=== PATIENT | female | born 1985 | race Caucasian/White ===

== ENCOUNTER 2016-02-23 23:28 | Emergency (ER) | payer OTHER ==
[~2016-02-23] VITALS: Ht 154.9 cm; Wt 69.2 kg
[~2016-02-23 23:28] MED LIST: CMBIN INH; POLY335025 PO
[2016-02-23 23:42] VITALS: TEMP 36.6; Ht 154.9 cm; Wt 69.2 kg
[2016-02-24 00:30] LABS: BASO % 0.3 %; BASO ABS # 0.03 K/uL (0-0.2); COMPLETE YES; EOS % 2.1 %; HEMATOCRIT 40.8 % (37-47); IG% 0.2 %; LYMPH % 29.1 %; MEAN CELL VOLUME 93.4 fL (80-100); MEAN CORPUSCULAR HEMOGLOBIN 32.7 pg (25-34); MEAN PLATELET VOLUME 10.2 fL (7.4-10.4); MONO % 9.8 %; NEUT % 58.5 %; PLATELET COUNT 220 K/uL (130-400); RED BLOOD COUNT 4.37 M/uL (4.2-5.4); WHITE BLOOD COUNT 10.31 K/uL (4.8-10.8)
[2016-02-24] MEDS ORDERED: HYDR25CA PO (00:44)
[2016-02-24] MEDS ORDERED: RTL20 PO (00:45)
[2016-02-24] MEDS ORDERED: VNTHFA/IN INH (00:46)
[2016-02-24] MEDS ORDERED: MULT-506 PO (00:46)
[2016-02-24] MEDS ORDERED: VITACAP26 PO (00:47)
[2016-02-24 00:51] LABS: PREG INTERNAL NEGATIVE QC NEG CLEAR BACKGROUND; PREG INTERNAL POSITIVE QC POS CONTROL LINE
[2016-02-24 00:57] LABS: ALT/SGPT 24 U/L (12-78); AST/SGOT 8 U/L (15-37); BLOOD UREA NITROGEN 12 mg/dl (7-18); BUN/CREATININE RATIO 15.3 (10-20); CALCIUM 9.5 mg/dl (8.5-10.1); CARBON DIOXIDE 27 mmol/L (21-32); CHLORIDE 105 mmol/L (98-107); GLUCOSE 94 mg/dl (70-99); POTASSIUM 4.4 mmol/L (3.5-5.1); SODIUM 143 mmol/L (136-145)
[2016-02-24 01:00] LABS: ALKALINE PHOSPHATASE 67 U/L (45-117)
[2016-02-24 01:20] VITALS: BP 99/60; PULSE 94; O2SAT 94
--- NOTE | 2016-02-24 01:21 | EMERGENCY ROOM VISIT NOTE ---
History Report prepared by Nell: Bhaskar Bassett Under the Supervision of: Dr. Jayy Jeff M.D. First contact with patient: 23:48 Chief Complaint: CHEST PAIN Stated Complaint: CHEST PAIN, SOB History of Present Illness The patient is a 30 year old female who presents to the Emergency Room with complaints of improving chest pain beginning 2 hours ago. She describes the pain as "sharp". She states that she was sitting and watching TV when her symptoms began. The patient notes that she has a history of anxiety, and currently feels very anxious. She states that she often gets heart palpitations with her anxiety, but has never had pain before. She also has a history of asthma. The patient denies any shortness of breath, but states that breathing worsens her pain. She denies any nausea, vomiting, diarrhea, fevers, or abdominal pain. She took Vistaril for her anxiety which has improved her chest pain. 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 She also notes that she was moving a lot of laundry today, and may have strained her chest muscle. Source of History: patient Onset: 2 hours ago Position: chest Quality: sharp Timing: other (improving) Modifying Factors (Worsening): breathing Associated Symptoms: No SOB, No abdominal pain, No diarrhea, No fevers, No nausea, No vomiting Review of Systems See HPI for pertinent positives & negatives. A total of 10 systems reviewed and were otherwise negative. Past Medical & Surgical Medical Problems: (1) ALCOHOL ABUSE-UNSPEC (2) ASTHMA, UNSPECIFIED (3) Depression (4) HISTORY OF TOBACCO USE (5) LUMBOSACRAL NEURITIS NOS Old medical records were reviewed. Nurse's notes were reviewed and I agree with. Family History No pertinent family history stated. Social History Smoking Status: Current Every Day Smoker Alcohol Use: occasionally Drug Use: none Marital Status: single Occupation Status: unemployed Current/Historical Medications Scheduled Hydroxyzine Pamoate (Vistaril), 25 MG PO BID Methylphenidate (Ritalin), 20 MG PO QAM Multivitamin (Multivitamin), 1 TAB PO DAILY Vitamins C & E (Vitamin C), 1 CAP PO DAILY Scheduled PRN Albuterol Hfa (Ventolin Hfa), 2 PUFFS INH DIRECTED PRN for Shortness of Breath Allergies Coded Allergies: Bupropion (Verified Allergy, Mild, HIVES; SWELLING, 02/24/16) Moxifloxacin (Verified Allergy, Mild, HIVES;SWELLING, 02/24/16) Quinolones (Verified Allergy, Mild, HIVES, 02/24/16) Morphine (Verified Adverse Reaction, Unknown, NAUSEA AND VOMITING, 02/24/16) Physical Exam Vital Signs Date Time Temp Pulse Resp B/P Pulse Ox O2 Delivery O2 Flow Rate FiO2 02/24/16 01:20 94 16 99/60 94 02/24/16 00:10 96 Room Air 02/23/16 23:42 36.6 94 18 117/71 97 Room Air Physical Exam General: Well developed, well nourished, non-ill appearing young female in no acute distress, breathing comfortably on room air. Normal speech HEENT: Normal cephalic atraumatic. Pupils are equal round and reactive to light. Extraocular movements are intact. Oropharynx is pink with moist mucous membranes. No swelling of the mouth lips or tongue. Neck: Supple with a midline trachea. No meningeal signs or stiffness, no JVD or bruits. No Stridor. Chest: Clear to auscultation bilaterally. No wheezes or rhonchi. No increased work of breathing. Mild tenderness to palpation of the left anterior chest. Heart: regular rate and rhythm. Abdomen: Soft, nontender, nondistended without rebound guarding or rigidity. Extremities: No cyanosis clubbing or edema. No calf tenderness or assymetry Spine/Back. Non tender to palpation. No CVA tenderness Skin: Good turgor without rashes. Neurologic exam: Cranial nerves two through 12 are intact. Motor and sensation are intact and symmetrical throughout. Medical Decision & Procedures ER Provider Diagnostic Interpretation: One View Chest X-ray interpreted by me: No acute infiltrate, failure or pneumothorax. Laboratory Results 02/24/16 00:15 Red Blood Count 4.37, Mean Corpuscular Volume 93.4, Mean Corpuscular Hemoglobin 32.7, Mean Corpuscular Hemoglobin Concent 35.0, Mean Platelet Volume 10.2, Neutrophils (%) (Auto) 58.5, Lymphocytes (%) (Auto) 29.1, Monocytes (%) (Auto) 9.8, Eosinophils (%) (Auto) 2.1, Basophils (%) (Auto) 0.3, Neutrophils # (Auto) 6.03, Lymphocytes # (Auto) 3.00, Monocytes # (Auto) 1.01, Eosinophils # (Auto) 0.22, Basophils # (Auto) 0.03 02/24/16 00:15 Test 02/24/16 00:15 02/24/16 00:22 White Blood Count 10.31 K/uL (4.8-10.8) Red Blood Count 4.37 M/uL (4.2-5.4) Hemoglobin 14.3 g/dL (12.0-16.0) Hematocrit 40.8 % (37-47) Mean Corpuscular Volume 93.4 fL (80-100) Mean Corpuscular Hemoglobin 32.7 pg (25-34) Mean Corpuscular Hemoglobin Concent 35.0 g/dl (32-36) Platelet Count 220 K/uL (130-400) Mean Platelet Volume 10.2 fL (7.4-10.4) Neutrophils (%) (Auto) 58.5 % Lymphocytes (%) (Auto) 29.1 % Monocytes (%) (Auto) 9.8 % Eosinophils (%) (Auto) 2.1 % Basophils (%) (Auto) 0.3 % Neutrophils # (Auto) 6.03 K/uL (1.4-6.5) Lymphocytes # (Auto) 3.00 K/uL (1.2-3.4) Monocytes # (Auto) 1.01 K/uL (0.11-0.59) Eosinophils # (Auto) 0.22 K/uL (0-0.5) Basophils # (Auto) 0.03 K/uL (0-0.2) RDW Standard Deviation 46.6 fL (36.4-46.3) RDW Coefficient of Variation 13.6 % (11.5-14.5) Immature Granulocyte % (Auto) 0.2 % Immature Granulocyte # (Auto) 0.02 K/uL (0.00-0.02) Anion Gap 11.0 mmol/L (3-11) Est Creatinine Clear Calc Drug Dose 90.6 ml/min Estimated GFR () 113.9 Estimated GFR (Non- 98.2 BUN/Creatinine Ratio 15.3 (10-20) Calcium Level 9.5 mg/dl (8.5-10.1) Total Bilirubin 0.1 mg/dl (0.2-1) Direct Bilirubin < 0.1 mg/dl (0-0.2) Aspartate Amino Transf (AST/SGOT) 8 U/L (15-37) Alanine Aminotransferase (ALT/SGPT) 24 U/L (12-78) Alkaline Phosphatase 67 U/L (45-117) Total Protein 7.4 gm/dl (6.4-8.2) Albumin 4.0 gm/dl (3.4-5.0) Lipase 85 U/L (73-393) Human Chorionic Gonadotropin, Qual NEG (NEG) Bedside D-Dimer 409 ng/mlFEU (0-450) Bedside Troponin I 0.000 ng/ml (0-0.045) Laboratory studies as stated above per my review. ECG Indication: chest pain Rate (beats per minute): 103 Rhythm: sinus tachycardia Findings: no acute ischemic change Comparison ECG Date: December 14, 2015 Change: no significant change ED Course 2354: Past medical records reviewed. The patient was evaluated in room C9, and a complete history and physical examination were performed. 0055: I checked in on the patient. She feels better. 0120: Upon reevaluation, the patient is resting comfortably. I discussed the results and treatment plan with her. She verbalized agreement of the treatment plan. The patient was discharged home. Medical Decision Differentials include, but are not limited to; anxiety, costochondritis, PE, pneumothorax, pneumonia, and electrolyte or metabolic abnormality. This patient comes in as described above. She was placed on a awake overnight monitor in room C9. She is here for treatment and evaluation of chest pain. she does have a history of anxiety. she also has been lifting and is concerned she could' ve pulled something. she looks well on exam .she took Vistaril at home and feels a lot better. She did declines any further pain medication. EKG does not suggest acute coronary syndrome or arrhythmia. Chest x-ray was unremarkable and she has nothing to suggest congestive heart failure, pneumonia, or pneumothorax. She has no acute electrolyte or metabolic abnormalities. Her d- dimer was within normal limits and in a low pretest probability setting, makes PE highly unlikely. She feels good and would like to go home. I think most likely this was musculoskeletal or anxiety or combination thereof. I told her that she can use anti-inflammatories if needed for pain and use her Vistaril if needed for anxiety. return if: Worsening of symptoms, fever or chills, shortness of breath, any new problems concerns. She is happy with the plan and discharged to home. Impression Primary Impression: Left sided chest pain Additional Impression: Anxiety Scribe Attestation The scribe's documentation has been prepared under my direction and personally reviewed by me in its entirety. I confirm that the note above accurately reflects all work, treatment, procedures, and medical decision making performed by me. Departure Information Dispostion Home / Self-Care Referrals No Doctor, Assigned (PCP) Forms HOME CARE DOCUMENTATION FORM, IMPORTANT VISIT INFORMATION Patient Instructions A Signature Page, [facility] Additional Instructions Rest. Drink plenty of fluids. Return if: Worsening of symptoms, increasing pain, shortness of breath, fever or chills, any new problems or concerns Follow-up with your doctor in 1-2 days for recheck
--- NOTE | 2016-02-24 06:40 | DIAGNOSTIC IMAGING REPORT ---
CHEST ONE VIEW PORTABLE CLINICAL HISTORY: Chest pain. COMPARISON STUDY: Chest radiograph November 06, 2012. FINDINGS: Lung volumes are at the lower limits of normal. There is no pneumothorax or pleural effusion. Cardiac size is normal. Mediastinal contours are normal. There is no evidence of pulmonary edema. IMPRESSION: No acute cardiopulmonary findings. Electronically signed by: Booker Mcnally M.D. 02/24/2016 6:38 AM
== END 2016-02-24 01:20 | disposition home or self-care (01) ==
LOC: C.EDB 23:29 → C.EDC 02-24 01:20
DX: R07.9 Chest pain, unspecified (principal); F17.210 Nicotine dependence, cigarettes, uncomplicated; F32.9 Major depressive disorder, single episode, unspecified; F41.9 Anxiety disorder, unspecified; J45.909 Unspecified asthma, uncomplicated

== ENCOUNTER 2016-02-27 12:09 | Emergency (ER) | payer OTHER ==
[~2016-02-27] VITALS: Ht 154.9 cm; Wt 69.9 kg
[~2016-02-27 12:09] MED LIST changes: -CMBIN INH; +HYDR25CA PO; +MULT-506 PO; -POLY335025 PO; +RTL20 PO; +VITACAP26 PO; +VNTHFA/IN INH
[2016-02-27 12:11] VITALS: Ht 154.9 cm; Wt 69.9 kg
[2016-02-27] MEDS ORDERED: SODIUM CHLORIDE 0.9% 1000ML 1,000 ML IV ONE (12:33)
[2016-02-27] MEDS ORDERED: SODIUM CHLORIDE 0.9% 1000ML 1,000 ML IV STA ×2 (12:33→13:58)
--- NOTE | 2016-02-27 12:42 | EMERGENCY ROOM VISIT NOTE ---
History Report prepared by Nell: Ernesto Melton Under the Supervision of: Dr. Jayy Jeff M.D. First contact with patient: 12:28 Chief Complaint: DEHYDRATION Stated Complaint: DEHYDRATION History of Present Illness The patient is a 30 year old female who presents to the Emergency Room with complaints of a persistent weakness that started upon waking this morning. The patient says she feels completely drained. She cannot even produce spit in her mouth. The patient says that whenever she eats or drinks anything, her stomach bloats. She also noticed red spots on her left forearm. The patient denies any fevers, vomiting, diarrhea, abdominal pain, coughing, diarrhea, achiness, urinary symptoms, melena, hematochezia, or chance of . The patient says nobody is sick at her home. She feels like she did when she had mononucleosis. She has anxiety disorder, and is currently doing okay, and she denies any suicidal ideations. She did not get her flu shot. The patient had her thyroid checked 3 months ago and it was normal. Source of History: patient Onset: Upon waking this morning Position: other (global - weakness) Symptom Intensity: feels completely drained Timing: other (persistent) Associated Symptoms: + rash (red spots on left forearm), No abdominal pain, No cough, No diarrhea, No fevers, No hematochezia, No melena, No urinary symptoms, No vomiting Note: Associated symptoms: Cannot produce spit in mouth, whenever eats or drinks, patient's stomach bloats. Denies achiness. Review of Systems See HPI for pertinent positives & negatives. A total of 10 systems reviewed and were otherwise negative. Past Medical & Surgical Medical Problems: (1) ALCOHOL ABUSE-UNSPEC (2) ASTHMA, UNSPECIFIED (3) Depression (4) HISTORY OF TOBACCO USE (5) LUMBOSACRAL NEURITIS NOS Old medical records were reviewed. Nurse's notes were reviewed and I agree with. Family History No pertinent family history Social History Smoking Status: Current Every Day Smoker Alcohol Use: occasionally Drug Use: none Marital Status: single Occupation Status: unemployed Current/Historical Medications Scheduled Hydroxyzine Pamoate (Vistaril), 25 MG PO BID Methylphenidate (Ritalin), 20 MG PO QAM Multivitamin (Multivitamin), 1 TAB PO DAILY Vitamins C & E (Vitamin C), 1 CAP PO DAILY Scheduled PRN Albuterol Hfa (Ventolin Hfa), 2 PUFFS INH DIRECTED PRN for Shortness of Breath Allergies Coded Allergies: Bupropion (Verified Allergy, Mild, HIVES; SWELLING, 02/24/16) Moxifloxacin (Verified Allergy, Mild, HIVES;SWELLING, 02/24/16) Quinolones (Verified Allergy, Mild, HIVES, 02/24/16) Morphine (Verified Adverse Reaction, Unknown, NAUSEA AND VOMITING, 02/24/16) Physical Exam Vital Signs Date Time Temp Pulse Resp B/P Pulse Ox O2 Delivery O2 Flow Rate FiO2 02/27/16 14:56 85 18 121/74 99 Room Air 02/27/16 14:56 36.8 96 18 137/84 99 02/27/16 12:11 36.8 96 18 137/84 99 Room Air Nasal Cannula Physical Exam General: Well developed well nourished, non ill-appearing young female in no acute distress, breathing comfortably on room air. Normal speech HEENT: Normal cephalic atraumatic. Pupils are equal round and reactive to light. Extraocular movements are intact. Oropharynx is pink with moist mucous membranes. No swelling of the mouth lips or tongue. Neck: Supple with a midline trachea. No meningeal signs or stiffness, no JVD or bruits. No Stridor. Chest: Clear to auscultation bilaterally. No wheezes or rhonchi. No increased work of breathing. Heart: regular rate and rhythm. Abdomen: Soft nontender, nondistended without rebound guarding or rigidity. Extremities: No cyanosis clubbing or edema. No calf tenderness or assymetry Spine/Back. Non tender to palpation. No CVA tenderness Skin: Good turgor without rashes. Neurologic exam: Cranial nerves two through 12 are intact. Motor and sensation are intact and symmetrical throughout. Medical Decision & Procedures Laboratory Results 02/27/16 12:52 Red Blood Count 4.16, Mean Corpuscular Volume 92.5, Mean Corpuscular Hemoglobin 32.7, Mean Corpuscular Hemoglobin Concent 35.3, Mean Platelet Volume 9.9, Neutrophils (%) (Auto) 72.0, Lymphocytes (%) (Auto) 17.7, Monocytes (%) (Auto) 8.2, Eosinophils (%) (Auto) 1.6, Basophils (%) (Auto) 0.2, Neutrophils # (Auto) 7.75, Lymphocytes # (Auto) 1.90, Monocytes # (Auto) 0.88, Eosinophils # (Auto) 0.17, Basophils # (Auto) 0.02 02/27/16 12:52 Test 02/27/16 12:42 02/27/16 12:52 Urine Color YELLOW Urine Appearance CLEAR (CLEAR) Urine pH 5.5 (4.5-7.5) Urine Specific [place] 1.000 (1.000-1.030) Urine Protein NEG (NEG) Urine Glucose (UA) NEG (NEG) Urine Ketones NEG (NEG) Urine Occult Blood NEG (NEG) Urine Nitrite NEG (NEG) Urine Bilirubin NEG (NEG) Urine Urobilinogen NEG (NEG) Urine Leukocyte Esterase NEG (NEG) Urine Test NEG (NEG) White Blood Count 10.75 K/uL (4.8-10.8) Red Blood Count 4.16 M/uL (4.2-5.4) Hemoglobin 13.6 g/dL (12.0-16.0) Hematocrit 38.5 % (37-47) Mean Corpuscular Volume 92.5 fL (80-100) Mean Corpuscular Hemoglobin 32.7 pg (25-34) Mean Corpuscular Hemoglobin Concent 35.3 g/dl (32-36) Platelet Count 212 K/uL (130-400) Mean Platelet Volume 9.9 fL (7.4-10.4) Neutrophils (%) (Auto) 72.0 % Lymphocytes (%) (Auto) 17.7 % Monocytes (%) (Auto) 8.2 % Eosinophils (%) (Auto) 1.6 % Basophils (%) (Auto) 0.2 % Neutrophils # (Auto) 7.75 K/uL (1.4-6.5) Lymphocytes # (Auto) 1.90 K/uL (1.2-3.4) Monocytes # (Auto) 0.88 K/uL (0.11-0.59) Eosinophils # (Auto) 0.17 K/uL (0-0.5) Basophils # (Auto) 0.02 K/uL (0-0.2) RDW Standard Deviation 44.4 fL (36.4-46.3) RDW Coefficient of Variation 13.1 % (11.5-14.5) Immature Granulocyte % (Auto) 0.3 % Immature Granulocyte # (Auto) 0.03 K/uL (0.00-0.02) Anion Gap 10.0 mmol/L (3-11) Est Creatinine Clear Calc Drug Dose 87.8 ml/min Estimated GFR () 108.9 Estimated GFR (Non- 94.0 BUN/Creatinine Ratio 11.4 (10-20) Calcium Level 8.8 mg/dl (8.5-10.1) Total Bilirubin 0.4 mg/dl (0.2-1) Direct Bilirubin < 0.1 mg/dl (0-0.2) Aspartate Amino Transf (AST/SGOT) 10 U/L (15-37) Alanine Aminotransferase (ALT/SGPT) 15 U/L (12-78) Alkaline Phosphatase 63 U/L (45-117) Total Protein 7.1 gm/dl (6.4-8.2) Albumin 3.9 gm/dl (3.4-5.0) Lipase 62 U/L (73-393) Thyroid Stimulating Hormone (TSH) 0.427 uIu/ml (0.300-4.500) Laboratory studies as stated above per my review. Medications Administered Medications (Trade) Dose Ordered Sig/Juarez Route Start Time Stop Time Status Last Admin Dose Admin Sodium Chloride 1,000 ml @ 999 mls/hr Q1H1M STAT IV 02/27/16 12:33 02/27/16 13:33 DC 02/27/16 13:08 999 MLS/HR Sodium Chloride (Nss 1000ml) 1,000 ml @ 999 mls/hr Q1H1M STAT IV 02/27/16 13:58 02/27/16 14:58 DC 02/27/16 14:03 999 MLS/HR ECG Indication: weakness Rate (beats per minute): 74 Rhythm: normal sinus Findings: no acute ischemic change, no ectopy Comparison ECG Date: compared to 02/21/2016, rate has decreased, otherwise no change ED Course 1229: Past medical records reviewed. The patient was evaluated in room A10, and a complete history and physical examination were performed. 1233: Ordered NSS 1000 ml @ 200 mls/hr IV, NSS 1000 ml @ 999 mls/hr IV. 1356: I reevaluated the patient and she is starting to feel better. 1419: I reevaluated the patient and she is resting comfortably. The patient verbally expressed agreement and understanding of the treatment plan. The patient will be discharged. Medical Decision Differential diagnoses include: dehydration, viral illness, electrolyte or metabolic abnormality, arrhythmia, anemia, thyroid disease. This patient comes in as described above she feels weak diffusely and tired. She was placed in room A 10. She otherwise has no significant symptoms. She's had no flulike symptoms. No achiness or fever chills or headache. No cough. I did see her several days ago for chest pain that has resolved and her workup was unremarkable at that time. She has no urinary symptoms. She's not losing blood anywhere. She's had no blood or black colored stool .she has no vaginal bleeding and denies . IV access was established and she was hydrated 1 L IV normal saline bolus and 200 mL an hour of IV normal saline. Multiple blood testing was obtained as well as EKG. She was reassessed frequently. A urinalysis was also ordered. He has nothing to suggest a UTI. Her TSH is within normal limits. She did receive a second 1 liter IV normal saline was feeling better. It may be that she has an early viral illness. She has a normal neurologic exam. She looks and feels good and like to go home I will discharge her home. She will return if: Worsening of symptoms, any new prompts or concerns. She is to rest and drink plenty of fluids. Follow up with her doctor Monday for recheck. Impression Primary Impression: Weakness Scribe Attestation The scribe's documentation has been prepared under my direction and personally reviewed by me in its entirety. I confirm that the note above accurately reflects all work, treatment, procedures, and medical decision making performed by me. Departure Information Dispostion Home / Self-Care Referrals No Doctor, Assigned (PCP) Kaylen Rush M.D. Forms HOME CARE DOCUMENTATION FORM, IMPORTANT VISIT INFORMATION, WORK / SCHOOL INSTRUCTIONS Patient Instructions A Signature Page, [facility] Additional Instructions Rest. Drink plenty of fluids. Return if: Fever or chills, worsening symptoms, any new problems or concerns Follow up with her doctor Monday for recheck if not better. Return to ER over the weekend if symptoms worsen.
[2016-02-27 13:08] LABS: URINE APPEARANCE CLEAR (CLEAR); URINE BILIRUBIN NEG (NEG); URINE COLOR YELLOW; URINE NITRITE NEG (NEG); URINE PH 5.5 (4.5-7.5); UROBILINOGEN NEG (NEG)
[2016-02-27 13:08] LABS: BASO % 0.2 %; BASO ABS # 0.02 K/uL (0-0.2); COMPLETE YES; EOS % 1.6 %; HEMATOCRIT 38.5 % (37-47); IG% 0.3 %; LYMPH % 17.7 %; MEAN CELL VOLUME 92.5 fL (80-100); MEAN CORPUSCULAR HEMOGLOBIN 32.7 pg (25-34); MEAN CORPUSCULAR HGB CONC 35.3 g/dl (32-36); MEAN PLATELET VOLUME 9.9 fL (7.4-10.4); MONO % 8.2 %; PLATELET COUNT 212 K/uL (130-400); RED BLOOD COUNT 4.16 M/uL (4.2-5.4); WHITE BLOOD COUNT 10.75 K/uL (4.8-10.8)
[2016-02-27 13:13] LABS: MANUAL MICROSCOPIC REQUIRED? NO; REVIEW REQ? NO
[2016-02-27 13:28] LABS: ALT/SGPT 15 U/L (12-78); BLOOD UREA NITROGEN 10 mg/dl (7-18); BUN/CREATININE RATIO 11.4 (10-20); CALCIUM 8.8 mg/dl (8.5-10.1); CARBON DIOXIDE 25 mmol/L (21-32); CHLORIDE 104 mmol/L (98-107); CREATININE 0.83 mg/dl (0.60-1.20); GLUCOSE 91 mg/dl (70-99); POTASSIUM 3.3 mmol/L (3.5-5.1); SODIUM 139 mmol/L (136-145)
[2016-02-27 13:31] LABS: ALKALINE PHOSPHATASE 63 U/L (45-117); AST/SGOT 10 U/L (15-37)
[2016-02-27 14:50] LABS: THYROID STIMULATING HORMONE 0.427 uIu/ml (0.300-4.500)
[2016-02-27 14:56] VITALS: BP 121/74; PULSE 85; TEMP 36.8; O2SAT 99
== END 2016-02-27 14:57 | disposition home or self-care (01) ==
LOC: C.EDB 12:10 → C.EDA 14:57
DX: E86.0 Dehydration (principal); F41.9 Anxiety disorder, unspecified; R53.1 Weakness; F17.210 Nicotine dependence, cigarettes, uncomplicated

== ENCOUNTER 2017-09-20 22:32 | Emergency (ER) | payer OTHER ==
[~2017-09-20] VITALS: Ht 154.9 cm; Wt 67.3 kg
[2017-09-20 22:37] VITALS: TEMP 36.7; Ht 154.9 cm; Wt 67.3 kg
[2017-09-20 23:19] LABS: BASO % 0.3 %; BASO ABS # 0.02 K/uL (0-0.2); EOS ABS # 0.24 K/uL (0-0.5); HEMATOCRIT 38.5 % (37-47); HEMOGLOBIN 13.2 g/dL (12.0-16.0); IG# 0.02 K/uL (0.00-0.02); LYMPH ABS # 2.87 K/uL (1.2-3.4); MEAN CELL VOLUME 96.3 fL (80-100); MEAN CORPUSCULAR HGB CONC 34.3 g/dl (32-36); MEAN PLATELET VOLUME 9.6 fL (7.4-10.4); MONO % 7.5 %; NEUT % 52.9 %; NEUT ABS # 4.22 K/uL (1.4-6.5); PLATELET COUNT 244 K/uL (130-400); RED CELL DISTRIBUTION WIDTH CV 12.9 % (11.5-14.5); WHITE BLOOD COUNT 7.97 K/uL (4.8-10.8)
[2017-09-20] MEDS ORDERED: AMPH10TA2 PO (23:26)
[2017-09-20 23:43] LABS: ALBUMIN 3.9 gm/dl (3.4-5.0); ALKALINE PHOSPHATASE 72 U/L (45-117); ALT/SGPT 19 U/L (12-78); AST/SGOT 8 U/L (15-37); BLOOD UREA NITROGEN 12 mg/dl (7-18); CALCIUM 8.4 mg/dl (8.5-10.1); CARBON DIOXIDE 27 mmol/L (21-32); CREATININE 0.83 mg/dl (0.60-1.20); GLUCOSE 96 mg/dl (70-99); LIPASE 66 U/L (73-393); POTASSIUM 3.9 mmol/L (3.5-5.1); SODIUM 140 mmol/L (136-145); TOTAL PROTEIN 7.3 gm/dl (6.4-8.2)
[2017-09-21 00:10] VITALS: BP 114/74; PULSE 82; O2SAT 97
--- NOTE | 2017-09-21 01:54 | EMERGENCY ROOM VISIT NOTE ---
History Report prepared by Nell: Ritu Nina Under the Supervision of: Dr. Urbano Velasquez M.D. First contact with patient: 22:51 Chief Complaint: FLANK PAIN Stated Complaint: PAIN LEFT SIDE History of Present Illness The patient is a 32 year old female who presents to the Emergency Room with complaints of constant mild left flank pain that started at 1700 today. The patient currently rates her pain a 5/10 and she states her pain is deep under her ribcage. The patient reports she had a D&C a week ago and has since felt normal cramping and minimal bleeding. The patient states she has not taken medication for her pain and does not recall any trauma to the area or engaging in strenuous activity. The patient reports a history of mononucleosis 10 years ago and notes that she has had a urinary tract infection in the past. She denies any history of kidney stones. Pt denies LOC, headache, fevers, chills, diaphoresis, visual changes, neck pain, breathing difficulties, nausea, vomiting , back pain, melena, hematochezia, urinary symptoms, numbness, weakness, lymphadenopathy, rash, or other complaints. Source of History: patient Onset: 1700 today Position: abdomen (left flank) Symptom Intensity: mild Quality: other (pain) Timing: constant Associated Symptoms: No nausea Note: additional symptoms: cramping, minimal bleeding Review of Systems See HPI for pertinent positives and negatives. A total of ten systems were reviewed and were otherwise negative. Past Medical & Surgical Medical Problems: (1) ALCOHOL ABUSE-UNSPEC (2) ASTHMA, UNSPECIFIED (3) Depression (4) HISTORY OF TOBACCO USE (5) LUMBOSACRAL NEURITIS NOS (6) Mononucleosis (7) Urinary tract infection Surgical Problems: (1) S/P dilation and curettage Family History No pertinent family history Social History Smoking Status: Current Every Day Smoker Alcohol Use: occasionally Drug Use: none Marital Status: single Occupation Status: unemployed Current/Historical Medications Scheduled Amphetamine-Dextroamphetamine 10MG (Adderall 10MG), 15 MG PO QAM Multivitamin (Multivitamin), 1 TAB PO DAILY Vitamins C & E (Vitamin C), 1 CAP PO DAILY Scheduled PRN Albuterol Hfa (Ventolin Hfa), 2 PUFFS INH DIRECTED PRN for Shortness of Breath Hydroxyzine Pamoate (Vistaril), 25 MG PO BID PRN for PRN Allergies Coded Allergies: Bupropion (Verified Allergy, Mild, HIVES; SWELLING, 09/20/17) Moxifloxacin (Verified Allergy, Mild, HIVES;SWELLING, 09/20/17) Quinolones (Verified Allergy, Mild, HIVES, 09/20/17) Morphine (Verified Adverse Reaction, Unknown, NAUSEA AND VOMITING, 09/20/17) Physical Exam Vital Signs Date Time Temp Pulse Resp B/P (MAP) Pulse Ox O2 Delivery O2 Flow Rate FiO2 09/21/17 00:10 82 18 114/74 97 09/20/17 23:24 72 09/20/17 23:23 72 09/20/17 22:37 36.7 81 18 125/85 97 Room Air Physical Exam GENERAL: Awake, alert, well-appearing, in no distress HENT: Normocephalic, atraumatic. Oropharynx unremarkable. EYES: Normal conjunctiva. Sclera non-icteric. NECK: Supple. No nuchal rigidity. FROM. No masses. RESPIRATORY: Clear to auscultation. No wheezes. No rales. Normal respiratory effort. CARDIAC: Normal rate. Normal rhythm. No murmurs. No rubs. Extremities warm and well perfused. Pulses equal. No JVD. GI: Soft, non-distended. Tenderness in the left lower lateral rib margin. No rebound or guarding. No masses. RECTAL: Deferred. MUSCULOSKELETAL: Atraumatic. Chest examination reveals no tenderness. The back is symmetrical on inspection without obvious abnormality. There is no CVA tenderness to palpation. No joint edema. LOWER EXTREMITIES: Calves are equal size bilaterally and non-tender. No edema. No discoloration. NEURO: Normal sensorium. No sensory or motor deficits noted. SKIN: No rash or jaundice noted. Medical Decision & Procedures ER Provider Diagnostic Interpretation: Radiology results as stated below per my review interpretation: CT Abdomen/Pelvis: Normal. No acute findings. Laboratory Results 09/20/17 23:05 Red Blood Count 4.00, Mean Corpuscular Volume 96.3, Mean Corpuscular Hemoglobin 33.0, Mean Corpuscular Hemoglobin Concent 34.3, Mean Platelet Volume 9.6, Neutrophils (%) (Auto) 52.9, Lymphocytes (%) (Auto) 36.0, Monocytes (%) (Auto) 7.5, Eosinophils (%) (Auto) 3.0, Basophils (%) (Auto) 0.3, Neutrophils # (Auto) 4.22, Lymphocytes # (Auto) 2.87, Monocytes # (Auto) 0.60, Eosinophils # (Auto) 0.24, Basophils # (Auto) 0.02 09/20/17 23:05 Test 09/20/17 23:05 White Blood Count 7.97 K/uL (4.8-10.8) Red Blood Count 4.00 M/uL (4.2-5.4) Hemoglobin 13.2 g/dL (12.0-16.0) Hematocrit 38.5 % (37-47) Mean Corpuscular Volume 96.3 fL (80-100) Mean Corpuscular Hemoglobin 33.0 pg (25-34) Mean Corpuscular Hemoglobin Concent 34.3 g/dl (32-36) Platelet Count 244 K/uL (130-400) Mean Platelet Volume 9.6 fL (7.4-10.4) Neutrophils (%) (Auto) 52.9 % Lymphocytes (%) (Auto) 36.0 % Monocytes (%) (Auto) 7.5 % Eosinophils (%) (Auto) 3.0 % Basophils (%) (Auto) 0.3 % Neutrophils # (Auto) 4.22 K/uL (1.4-6.5) Lymphocytes # (Auto) 2.87 K/uL (1.2-3.4) Monocytes # (Auto) 0.60 K/uL (0.11-0.59) Eosinophils # (Auto) 0.24 K/uL (0-0.5) Basophils # (Auto) 0.02 K/uL (0-0.2) RDW Standard Deviation 45.0 fL (36.4-46.3) RDW Coefficient of Variation 12.9 % (11.5-14.5) Immature Granulocyte % (Auto) 0.3 % Immature Granulocyte # (Auto) 0.02 K/uL (0.00-0.02) Urine Color YELLOW Urine Appearance CLEAR (CLEAR) Urine pH 7.5 (4.5-7.5) Urine Specific Sandy 1.010 (1.000-1.030) Urine Protein NEG (NEG) Urine Glucose (UA) NEG (NEG) Urine Ketones NEG (NEG) Urine Occult Blood NEG (NEG) Urine Nitrite NEG (NEG) Urine Bilirubin NEG (NEG) Urine Urobilinogen NEG (NEG) Urine Leukocyte Esterase NEG (NEG) Urine Test NEG (NEG) Anion Gap 6.0 mmol/L (3-11) Est Creatinine Clear Calc Drug Dose 84.6 ml/min Estimated GFR () 107.4 Estimated GFR (Non- 92.7 BUN/Creatinine Ratio 15.0 (10-20) Calcium Level 8.4 mg/dl (8.5-10.1) Total Bilirubin 0.2 mg/dl (0.2-1) Direct Bilirubin < 0.1 mg/dl (0-0.2) Aspartate Amino Transf (AST/SGOT) 8 U/L (15-37) Alanine Aminotransferase (ALT/SGPT) 19 U/L (12-78) Alkaline Phosphatase 72 U/L (45-117) Total Protein 7.3 gm/dl (6.4-8.2) Albumin 3.9 gm/dl (3.4-5.0) Lipase 66 U/L (73-393) Laboratory results reviewed by me ED Course 2300: The patient was evaluated in room C11B. A complete history and physical exam was performed. 2356: I checked on the patient. The patient is feeling well but does not want to wait for her CT results, so we will call her about them. Discussed results and discharge instructions: She verbalized understanding and agreement. The patient is ready for discharge. Medical Decision Prior records/ancillary studies reviewed. Triage Nursing notes reviewed and agree them. The patient's history was concerning for flank pain. Differential diagnosis: Etiologies such as muscular skeletal, renal colic, appendicitis, diverticulitis , mesenteric ischemia, aortic pathology, infections, inflammatory bowel disease , PUD, biliary pathology, UTI, as well as others were entertained. Physical examination findings: As above. ER treatment provided: Patient declined analgesia On reassessment the patient felt better. Diagnostic interpretation by me: The labs revealed an unremarkable CBC and chemistry panel. Urinalysis was negative. Imaging studies: CT of the abdomen and pelvis as above. The patient had tenderness in the left lower costal margin on examination. Her workup was negative. The patient requested to be discharged prior to CT imaging results because she had to work. Risks and benefits discussed. I gave my usual and customary discussion regarding this issue. CT imaging returned negative. I suspect a musculoskeletal source. She had no pelvic pain or discharge. This does not appear to be related to her recent surgery. She will follow-up as an outpatient. If she worsens in any way she will be back. By the evaluation outlined above other emergent etiologies such as those listed in the differential, as well as others, were deemed relatively unlikely. The patient was educated about the findings as listed above. All questions were answered and the patient was pleased with the treatment. Return instructions were outlined and the patient was discharged in stable condition. The patient was referred to her PCP for follow-up for a recheck of the current condition. Medication Reconcilliation Current Medication List: was personally reviewed by me Blood Pressure Screening Patient's blood pressure: Normal blood pressure Blood pressure disposition: Did not require urgent referral Impression Primary Impression: Left flank pain Scribe Attestation The scribe's documentation has been prepared under my direction and personally reviewed by me in its entirety. I confirm that the note above accurately reflects all work, treatment, procedures, and medical decision making performed by me. Departure Information Dispostion Home / Self-Care Referrals No Doctor, Assigned (PCP) Forms HOME CARE DOCUMENTATION FORM, IMPORTANT VISIT INFORMATION Patient Instructions My [facility] Additional Instructions Ibuprofen(Motrin, Advil) may be used for fever or pain. Use 600mg every six hours as needed. Take with food. Avoid using more than 2400mg in a 24 hour period. Do not use 2400mg per day for more than three consecutive days without physician direction. Prolonged inappropriate use can lead to stomach upset or ulcers. (AND/OR) Acetaminophen(Tylenol) may be used for fever or pain. Use 1000mg every six hours as needed. Avoid using more than 4000mg in a 24 hour period. Return to the ER for worsening flank pain, abdominal or back pain, vomiting, fevers, passing out, or as needed. Follow-up with your primary care physician in 2 to 3 days for a recheck of your current condition.
--- NOTE | 2017-09-21 06:58 | DIAGNOSTIC IMAGING REPORT ---
ABD/PELVIS WITHOUT FOR STONE HISTORY: 32 years-old Female left flank pain acute left-sided flank pain COMPARISON: None available TECHNIQUE: Multiple axial CT images of the abdomen and pelvis were obtained without use of IV contrast. A dose lowering technique was used consistent with the principals of JAG. FINDINGS: Lung bases are generally clear. No pneumatosis or pneumoperitoneum. Imaged inferior cardiac chambers are unremarkable. Mildly contracted gallbladder. The liver, spleen, pancreas and adrenal glands are unremarkable. Kidneys, ureters and bladder are unremarkable. No urolith or obstructive uropathy. Uterus and adnexa are unremarkable. The aorta and IVC are also within normal limits. There are no pathologically enlarged lymph nodes identified. 10 mm fatty attenuating focus is noted within the duodenum, possibly reflecting a submucosal lipoma. No bowel obstruction or focal bowel wall thickening. Minimal colonic diverticulosis without diverticulitis. Terminal ileum and appendix appear normal. No ascites or mesenteric inflammatory changes. The imaged breast parenchyma and soft tissues are unremarkable. The bones appear to be intact. Osteitis condensans Ilii. Prior laminectomy and discectomy at L5-S1 with posterior interbody carlos and screw fusion extending from L4 through S1. 4 mm anterolisthesis L5 on S1. No evidence of hardware fracture or loosening. Subcortical cystic changes are noted about the left acetabulum. Mild convex left curvature of the lumbar spine. IMPRESSION: 1. No acute intra-abdominal or intrapelvic abnormality identified. Normal appendix. 2. No renal calculi or obstructive uropathy. 3. Minimal colonic diverticulosis without diverticulitis. 4. Prior laminectomy and discectomy at L5-S1 with posterior interbody carlos and screw fusion extending from L4 through S1. 4 mm anterolisthesis L5 on S1. The above report was generated using voice recognition software. It may contain grammatical, syntax or spelling errors. Electronically signed by: Matthew Orourke M.D. 09/21/2017 6:56 AM Dictated Date/Time: 09/21/2017 6:49 AM
== END 2017-09-21 00:10 | disposition home or self-care (01) ==
LOC: C.EDB 22:32 → C.EDC 09-21 00:10
DX: R10.9 Unspecified abdominal pain (principal); J45.909 Unspecified asthma, uncomplicated; F17.200 Nicotine dependence, unspecified, uncomplicated; Z79.899 Other long term (current) drug therapy; Z88.8 Allergy status to other drugs, medicaments and biological substances

== ENCOUNTER 2019-01-31 01:17 | Inpatient (IN) ==
[2019-01-31] MEDS ORDERED: OXYTOCIN 30 UNITS/500 ML BAG IV PRN ×3 (02:04→16:30)
[2019-01-31] MEDS: LACTATED RINGER'S 1,000 ML IV PRN ×4 (02:10→10:51)
[2019-01-31 02:34] LABS: Hematocrit (blood only) 31.2 % (37-47); Hemoglobin 10.5 g/dL (12.0-16.0); Mean Corpuscular Hemoglobin 33.2 pg (25-34); Mean Corpuscular Volume 98.7 fL (80-100); Mean Platelet Volume 9.3 fL (7.4-10.4); Platelet Count 176 K/uL (130-400); RDW Coefficient of Variation 15.2 % (11.5-14.5); RDW Standard Deviation 54.9 fL (36.4-46.3); Red Blood Count 3.16 M/uL (4.2-5.4); White Blood Count 10.91 K/uL (4.8-10.8)
[2019-01-31 02:36] LABS: Mean Corpuscular Hgb Conc 33.7 g/dL (32-36)
--- NOTE | 2019-01-31 07:23 | Labor Progress Brief Note ---
Date of Service January 31, 2019 Subjective Patient admitted overnight with c/o ROM. Did not make spontaneous change so pitocin was started. Feels mild cramps, no pain yet, not ready for epidural. LOF clear continues. Review of Systems All systems reviewed & are unremarkable except as noted in HPI & below Assessment & Plan (1) Supervision of normal intrauterine in multigravida: PROM, now IOL. Epidural on request. GBS neg. Present on Admission?: Yes Physical Exam Constitutional: WD/WN, vitals as above Eyes: PERRL, conjunctivae normal, anicteric sclerae ENMT: external ear and nose normal, oropharynx normal Neck: supple Respiratory: normal respiratory effort and able to speak in complete sentences; no respiratory distress Cardiovascular: Rate/Rhythm: regular rate and regular rhythm Gastrointestinal (Abdomen): Gravid / AGA, nontender Musculoskeletal: no cyanosis or clubbing, extremities motor strength 5/5 Skin: no rashes, warm and dry Neurologic: patellar DTR's 2+ bilat, sensation intact Psychiatric: A+Ox3, euthymic affect Genitourinary: Speculum/Bimanual Exam: no vaginal lesions, no vaginal bleeding and uterus nontender OB Exam Abdomen: + vertex, + estimated weight (7) and + regular contractions (Q4 with pit @ 7) Manual OB Exam: + cervical dilation 3 cm, + cervical effacement 70%, + station -2 and + amniotic fluid clear OB Exam Monitor Tracing: + external FHT monitor used, + external uterine monitor used and + category I Lymphatic: no cervical or axillary lymphadenopathy Results & Data Vital Signs (Past 12 Hours) Vital Signs Temp Pulse Resp BP 01/31/19 07:04 98.1 F 18 01/31/19 07:03 76 117/76 01/31/19 06:35 77 115/67 01/31/19 04:52 98.1 F 80 18 109/66 01/31/19 03:31 67 110/68 01/31/19 03:29 97.5 F L 18 01/31/19 02:16 65 106/54 L 01/31/19 01:34 98.2 F 82 18 116/72 01/31/19 01:27 98.2 F 82 18 116/72
[2019-01-31] MEDS ORDERED: BUPIVACAINE 0.25% 30 ML VIAL ONE (09:11)
[2019-01-31] MEDS ORDERED: ePHEDrine sulfate 50 MG/ML AMP ONE (09:11)
[2019-01-31] MEDS ORDERED: fentaNYL citrate 100 MCG/2 ML VIAL ONE (09:11)
[2019-01-31] MEDS ORDERED: fentaNYL 2MCG/ML ROPIV 1.25MG/ML 100 ML BAG EPI ONE (09:12)
[2019-01-31] MEDS ORDERED: DiphenhydrAMINE HCL 50 MG/ML VIAL IV PRN (09:34)
[2019-01-31] MEDS ORDERED: NALBUPHINE HCL INJ 10 MG/ML AMP IV PRN (09:34)
[2019-01-31] MEDS ORDERED: ONDANSETRON INJ 2 MG/ML 2 ML VIAL IV PRN (09:34)
[2019-01-31] MEDS ORDERED: fentaNYL 2MCG/ML ROPIV 1.25MG/ML 100 ML BAG EPI PRN (09:34)
[2019-01-31] MEDS ORDERED: NALOXONE HCL 1 MG in SODIUM CHLORIDE 0.9% 1000ML 1,000 ML IV PRN (09:34)
[2019-01-31] MEDS ORDERED: NALOXONE HCL 0.4 MG/1 ML VIAL/CARP IV PRN (09:34)
[2019-01-31] MEDS ORDERED: ePHEDrine sulfate 50 MG/ML AMP IV PRN (09:34)
--- NOTE | 2019-01-31 09:42 | Anesthesiology Consultation ---
Date of Service January 31, 2019 Assessment & Plan Chart Review Chart Review: Patient NOT seen in Pre Admission Testing and Acceptable Risk for Labor Epidural Consults Requested none ASA ASA2 Proposed Anesthesia Anesthesia Type: Labor Epidural and CSE Risk / Benefits Reviewed With: PT / POA / Parent / Guardian, Accepts Plan and Informed Consent Obtained History Height/Weight Height: 5 ft 1 in Weight: 85.729 kg Allergies Allergy/AdvReac Type Severity Reaction Status Date / Time bupropion Allergy Mild HIVES; Verified 01/28/19 15:40 SWELLING moxifloxacin Allergy Mild HIVES;SWELL Verified 01/28/19 15:40 ING Quinolones Allergy Mild HIVES Verified 01/28/19 15:40 tramadol Allergy Hives Verified 01/31/19 01:31 morphine AdvReac Unknown NAUSEA AND Verified 01/28/19 15:40 VOMITING Medications Home Medications Medication Instructions Recorded Confirmed Last Taken albuterol sulfate 90 mcg/actuation 2 puff INHALATION DIRECTED gm 09/18/18 01/31/19 01/30/19 22:00 aerosol inhaler prenat.vits,nahomi,[id number] 1 tab PO DAILY 12/21/18 01/31/19 01/30/19 09:00 ferrous sulfate [Iron (ferrous 325 mg PO DAILY 01/31/19 01/31/19 Unknown sulfate)] Active Medications Generic Name Dose Route Start Last Admin Trade Name Freq PRN Reason Stop Dose Admin Lactated Ringer's 1,000 mls @ 125 mls/hr 01/31/19 02:04 01/31/19 09:06 Lr IV 02/02/19 02:03 999 mls/hr .Q8H PRN Administration L&D Protocol Protocol Oxytocin 30 units in 500 mls @ 11 mls/hr 01/31/19 04:23 01/31/19 08:21 Pitocin IV 02/02/19 04:22 0.66 units/hr .Q24H PRN 11 mls/hr Labor Induction/Augmentation Titration Protocol 0.66 UNITS/HR NPO Date Last Intake of Fluids: 01/31/19 Time Last Intake of Fluids: 08:30 Date Last Intake of Solids: 01/30/19 Time Last Intake of Solids: 18:00 Past Medical History Medical History Left flank pain (Resolved) Low-lying placenta (Resolved) Mononucleosis (Resolved) No acute medical problems Urinary tract infection (Resolved) Exercise / Class Metabolic Activity II 4-5 Yardwork/Stairs/Walk up hill Past Family History Family History Grandmother (Paternal) Colorectal cancer Diabetes Mother Thyroid disease Other Anxiety Depression Past Surgical History Surgical History History of back surgery 2013 S/P dilatation and curettage S/P wisdom tooth extraction 2003 Status post nasal surgery 2007 Past Anesthesia History No Hx of Anesthesia Complications and No Family Hx of Anesthesia Complications History of PONV No Hx of PONV and No Hx of Motion Sickness Social History Smoking Status: Former smoker Hx Alcohol Use: No Hx Substance Use: No Review of Systems no chest pain or sob Physical Exam Vital Signs Last Vital Signs Temp 36.7 C 01/31/19 07:04 Pulse 68 01/31/19 09:39 Resp 18 01/31/19 08:21 BP 124/83 01/31/19 09:28 Pulse Ox 100 01/31/19 09:39 ENMT Mouth: no TMJ abnormality Thyromental Distance: > or= 3.5 Finger Breadths Mallampati Class: II Neck normal visual inspection Respiratory normal respiratory effort Auscultation: lungs clear to auscultation bilaterally Cardiovascular Rate/Rhythm: regular rate and regular rhythm Musculoskeletal Spine: normal cervical ROM Neurologic moves all extremities Psychiatric Orientation: alert and oriented x 3 Testing Laboratory Results 01/31/19 02:16
--- NOTE | 2019-01-31 11:17 | Labor Progress Brief Note ---
Date of Service January 31, 2019 Subjective Patient has received epidural. comfortable Assessment & Plan (1) PROM (premature rupture of membranes): continue pitocin, fetus category one, anticipate . Physical Exam Constitutional: WD/WN, vitals as above Psychiatric: A+Ox3, euthymic affect Genitourinary: cx--3/80/-2 toco--q3-5, pit at 13 efm--130s wtih mod variability, accels to 150s, no decels Results & Data Vital Signs (Past 12 Hours) Vital Signs Temp Pulse Resp BP Pulse Ox 01/31/19 11:14 60 98 01/31/19 11:09 66 100 01/31/19 11:04 65 94/51 L 99 01/31/19 10:59 66 98 01/31/19 10:54 78 98 01/31/19 10:53 86 93 01/31/19 10:52 18 01/31/19 10:49 76 98/61 L 99 01/31/19 10:44 69 100 01/31/19 10:39 71 99 01/31/19 10:36 81 93 01/31/19 10:34 68 103/69 98 01/31/19 10:30 18 01/31/19 10:29 83 98 01/31/19 10:24 72 99 01/31/19 10:19 73 98 01/31/19 10:17 64 109/65 01/31/19 10:14 79 106/63 98 01/31/19 10:13 80 92 01/31/19 10:11 76 105/60 01/31/19 10:09 73 97 01/31/19 10:08 79 18 103/56 L 01/31/19 10:05 81 109/66 01/31/19 10:04 79 98 01/31/19 10:02 77 108/64 01/31/19 10:01 18 01/31/19 09:59 79 105/62 99 01/31/19 09:56 71 104/64 01/31/19 09:54 73 99 01/31/19 09:53 78 115/72 01/31/19 09:50 67 124/76 01/31/19 09:49 70 99 01/31/19 09:44 72 100 01/31/19 09:39 68 100 01/31/19 09:34 72 99 01/31/19 09:29 63 99 01/31/19 09:28 64 124/83 01/31/19 08:21 72 18 114/71 01/31/19 07:04 36.7 C 18 01/31/19 07:03 76 117/76 01/31/19 06:35 77 115/67 01/31/19 04:52 36.7 C 80 18 109/66 01/31/19 03:31 67 110/68 01/31/19 03:29 36.4 C L 18 01/31/19 02:16 65 106/54 L 01/31/19 01:34 36.8 C 82 18 116/72 01/31/19 01:27 36.8 C 82 18 116/72
[2019-01-31] MEDS ORDERED: METHYLERGONOVINE MALEATE 0.2 MG/ML AMP ONE (13:38)
[2019-01-31] MEDS ORDERED: OXYCODONE/ACETAMINOPHEN 5mg/325mg TAB PO PRN (13:50)
[2019-01-31] MEDS ORDERED: ACETAMINOPHEN 325 MG TAB PO PRN (13:50)
--- NOTE | 2019-01-31 13:56 | Delivery Summary ---
Vaginal Delivery Summary Date of Service January 31, 2019 Vaginal Delivery Summary Pre-operative Diagnosis: IUP at 38 1/7 prom Post-operative Diagnosis: same Procedure: pitocin induction epidural vaginal tear with repair EBL: 350cc Anesthesia: epidural Procedure: Patient presented to labor and delivery with prom at about 2330 on 01/30. Allowed to walk, but needed pitocin for contractions. Got epidural and became complete. The patient pushed for 2-3 contractions to deliver a viable female infant in VANITA position. The nose and mouth were bulb suctioned on the perineum and the rest of the infant was then delivered without difficulty. The baby was vigorous. The nose and mouth were again bulb suctioned and the was placed in the maternal abdomen for drying and attention. Cord was clamped and cut at at about one minute of life. Cord blood. Placenta delivered spontaneous, intact with a three vessel cord. cervix an rectum intact. Bilateral, small sulcal tears noted that were superfical and hemostatic located in the mid/upper vagina at 5 and 7 o'clock. A introital vaginal tear repaired as well as a midline clitoral/ right labial tear. Hemostasis obtained with dilute pitocin and fundal massage and IM methergine. Apgars were 9/9. Mother and baby doing well at the end of the delivery. [facility] Vaginal Delivery Charge Vaginal Delivery Codes: 69019 global code for the antepartum, delivery, and post-
--- NOTE | 2019-01-31 14:55 | Anesthesia Procedure Note ---
Date of Service January 31, 2019 Anesthesia Post Epidural Note Vital Signs Vital Signs: Temp Pulse Resp BP Pulse Ox 36.4 C L 75 18 111/61 88 L 01/31/19 12:24 01/31/19 14:36 01/31/19 14:20 01/31/19 14:49 01/31/19 14:20 Pain Intensity Abdomen: Pain Intensity: 0 Notes Mental Status: alert / awake / arousable and participated in evaluation Nausea / Vomiting: adequately controlled Pain: adequately controlled Airway Patency, RR, SpO2: stable & adequate BP & HR: stable & adequate Hydration State: stable & adequate Neuraxial Anesthesia: was administered and sensory block is resolving Anesthetic Complications: no major complications apparent and Pt Satisfied with anesthetic care Epidural: Removed without complications and With tip intact
[2019-01-31] MEDS ORDERED: HYDROCORTISONE ACETATE 25 MG SUPP PR PRN (16:30)
[2019-01-31] MEDS ORDERED: SUPERCREAM 0.870% 15 GM JAR EXT PRN (16:30)
[2019-01-31] MEDS ORDERED: DIPHTHERIA/TETANUS/PERTUSSIS 0.5 ML SYR/VIAL IM ONE (16:30)
[2019-01-31] MEDS ORDERED: BENZOCAINE 20% AER SPR 82.5 GM CAN EXT PRN (16:30)
[2019-01-31] MEDS ORDERED: METHYLERGONOVINE MALEATE 0.2 MG/ML AMP IM ONE (16:30)
[2019-01-31] MEDS: IBUPROFEN 600 MG TAB PO PRN (21:09)
[2019-01-31] MEDS: DOCUSATE SODIUM 100 MG CAP PO SCH (21:11)
[2019-02-01] MEDS: IBUPROFEN 600 MG TAB PO PRN ×2 (03:31→07:57)
[2019-02-01 05:55] LABS: Hematocrit (blood only) 31.6 % (37-47); Hemoglobin 10.3 g/dL (12.0-16.0)
--- NOTE | 2019-02-01 06:05 | Obstetrical Progress Note ---
Date of Service <Librado Ardian MD - Last Filed: 02/01/19 06:39> February 01, 2019 Assessment & Plan <Librado Adrian MD - Last Filed: 02/01/19 06:39> (1) : PPD #1 doing well, voiding well, tolerating meals will continue routine care until discharge after discharge will have follow-up in 6 weeks Subjective <Librado Adrian MD - Last Filed: 02/01/19 06:39> Ms. Mcgee is a 33 y/o female ; PPD #1 following spontaneous vaginal delivery at 38+ weeks; doing well this morning; having minimal abdominal cramping/pain; voiding well; tolerating meals overnight; and able to ambulate some; some persistent spotting with intermittent improvement this morning. Review of Systems Constitutional: denies fever; chills; sweats; headache Respiratory: denies shortness of breath, difficulty breathing Cardiac: denies chest pain; palpitations; chest pressure Breast: denies breast pain : denies dysuria Physical Exam <Librado Adrian MD - Last Filed: 02/01/19 06:39> General: alert; oriented; no acute distress Cardiac: RRR; no m/g/r Respiratory: CTAB a/p; no wheezes/rales/rhonchi; no increased work of breathing; symmetrical chest rise; no respiratory distress Abdomen: soft; NT/ND; bowel sounds positive Uterus: uterine fundus firm; palpable 2cm below umbilicus Lower extrem: no lower extremity edema or swelling; no deep calf pain; Klye's sign negative b/l Results & Data <Librado Adrian MD - Last Filed: 02/01/19 06:39> Vital Signs (Past 12 Hours) Vital Signs Temp Pulse Resp BP Pulse Ox 02/01/19 03:35 36.7 C 77 14 110/63 98 01/31/19 23:10 36.6 C 82 16 96/61 L 97 01/31/19 19:30 36.7 C 71 20 112/74 98 Laboratory Results 02/01/19 Range/Units 05:37 Hgb 10.3 L (12.0-16.0) g/dL Hct 31.6 L (37-47) % Medications Administered Current Inpatient Medications Acetaminophen (Tylenol) 650 mg PO Q6H PRN PRN Reason: Pain/TOLLIVER/Fever Stop: 03/02/19 13:49 Benzocaine (Dermoplast Pain Relieving [place]) 1 appln EXT PRN PRN PRN Reason: Perineal Discomfort Stop: 03/02/19 16:29 Bisacodyl (Dulcolax) 5 mg PO 1999 [facility] Stop: 02/01/19 20:01 Bisacodyl (Dulcolax) 10 mg MN DAILY PRN PRN Reason: No BM on 2nd post- day Stop: 03/04/19 08:59 Cocaine HCl (Supercream 0.870%) 1 gm EXT BID PRN PRN Reason: Hemorrhoidal Inflammation Stop: 02/14/19 16:29 Docusate Sodium (Colace) 100 mg PO DAILY@, [facility] Stop: 03/02/19 20:59 Last Admin: 01/31/19 21:11 Dose: 100 mg Documented by: Hydrocortisone (Anusol Hc) 25 mg MN BID PRN PRN Reason: Hemorrhoidal Inflammation Stop: 03/02/19 16:29 Oxytocin (Pitocin) 30 units in 500 mls @ 333.333 mls/hr IV .Q1H30M PRN; Protocol PRN Reason: Bleeding Control Stop: 03/02/19 16:29 Ibuprofen (Motrin) 600 mg PO Q4H PRN PRN Reason: Pain/TOLLIVER/Cramping/Fever Stop: 03/02/19 13:49 Last Admin: 02/01/19 03:31 Dose: 600 mg Documented by: Oxycodone/Acetaminophen (Percocet 5mg/325mg) 1 tab PO Q4H PRN PRN Reason: Pain not relieved by... Stop: 02/14/19 13:49 Prenat Multivit/Naomi/Iron/Folic Ac ( Vitamin) 1 tab PO DAILY@08 [facility] Stop: 03/03/19 07:59 <Fartun Jones MD, FACOG - Last Filed: 02/01/19 06:59> Co-Signing Physician Notes Resident Physician Supervision Note: I interviewed and examined the patient. Discussed with Dr. Adrian and agree with findings and plan as documented in the note. Any exceptions or clarifications are listed here: Doing well. routine care. Documented By: Fartun Jones MD, FACOG Resident Activity Tracking <Librado Adrian MD - Last Filed: 02/01/19 06:39> Resident Involvement: Resident Care Provided Care Provided: OB Delivery
[2019-02-01] MEDS: DOCUSATE SODIUM 100 MG CAP PO SCH (07:57)
[2019-02-01] MEDS ORDERED: PRENATAL VITAMIN 1 TAB PO SCH (08:00)
[2019-02-01] MEDS ORDERED: bisacodyL 5 MG TABEC PO SCH (20:00)
[2019-02-02] MEDS ORDERED: bisacodyL 10 MG SUPP PR PRN (09:00)
== END 2019-02-01 15:00 | disposition home or self-care (01) | DRG 807 ==
LOC: OPB 01:17 → 4S1 01:20 → 4S2 16:27